=== PATIENT | male | born 1955 | race Caucasian/White ===

== ENCOUNTER 2020-07-20 09:02 | Outpatient (RCR) | payer SELFPAY | END 2020-10-18 23:59 | disposition home or self-care (01) | LOC: ANHBWCAUD 09:02 | PROVIDERS: PCP Family Medicine; Visit Provider Family Medicine | DX: Z46.1 Encounter for fitting and adjustment of hearing aid (principal) | CPT/HCPCS: 92593 ==

== ENCOUNTER 2021-01-06 10:00 | Outpatient (RCR) | payer MEDICARE, SELFPAY | END 2021-02-28 23:59 | disposition home or self-care (01) | LOC: ANHBWCAUD 10:00 | PROVIDERS: PCP Family Medicine; Visit Provider Family Medicine | DX: Z46.1 Encounter for fitting and adjustment of hearing aid (principal) | CPT/HCPCS: 92593; 99199; V5264 ==

== ENCOUNTER 2021-08-02 08:40 | Outpatient (RCR) | payer MEDICARE, SELFPAY | END 2021-10-31 23:59 | disposition home or self-care (01) | LOC: ANHBWCAUD 08:40 | PROVIDERS: PCP Family Medicine; Visit Provider Family Medicine | DX: Z46.1 Encounter for fitting and adjustment of hearing aid (principal) | CPT/HCPCS: 92593 ==

== ENCOUNTER 2021-08-24 08:44 | Outpatient (CLI) | payer MEDICARE, SELFPAY | END 2021-08-24 08:45 | disposition home or self-care (01) | PROVIDERS: PCP Family Medicine; Visit Provider Family Medicine | DX: Z46.1 Encounter for fitting and adjustment of hearing aid (principal) | CPT/HCPCS: 92557; 92567 ==